=== PATIENT | female | born 1955 | race Caucasian/White ===

== ENCOUNTER 2021-12-24 08:48 | Outpatient (CLI) | payer BC, OTHER | END 2021-12-24 08:49 | disposition home or self-care (01) | LOC: BICMAMMO 08:48 | PROVIDERS: ATTEND Internal Medicine Rheumatology | DX: M81.0 Age-related osteoporosis without current pathological fracture (principal); M85.851 Other specified disorders of bone density and structure, right thigh | CPT/HCPCS: 77080 ==

== ENCOUNTER 2022-01-21 08:59 | Outpatient (CLI) | payer BC, OTHER | END 2022-01-21 09:00 | disposition home or self-care (01) | LOC: BICRAD 08:59 | PROVIDERS: ATTEND Internal Medicine Rheumatology | DX: M81.0 Age-related osteoporosis without current pathological fracture (principal); M41.9 Scoliosis, unspecified | CPT/HCPCS: 72072 ==

== ENCOUNTER 2023-01-25 08:39 | Outpatient (CLI) | payer BC, OTHER | END 2023-01-25 08:40 | disposition home or self-care (01) | LOC: BICMAMMO 08:39 | PROVIDERS: ATTEND Internal Medicine Rheumatology | DX: M81.0 Age-related osteoporosis without current pathological fracture (principal) | CPT/HCPCS: 77080 ==

== ENCOUNTER 2023-01-27 08:35 | Outpatient (CLI) | payer BC, OTHER | END 2023-01-27 08:36 | disposition home or self-care (01) | LOC: BICCT 08:35 | DX: I65.23 Occlusion and stenosis of bilateral carotid arteries (principal) | CPT/HCPCS: 70498; 82565 ==

== ENCOUNTER 2023-03-04 09:32 | Inpatient (IN) | payer BC, OTHER ==
[2023-03-04] MEDS ORDERED: Bupivacaine HCl 0.5%/Epinephrine 1:200,000/PF 30 ml Vial ONE (10:10)
[2023-03-04] MEDS ORDERED: Heparin 5,000 UNITS/ML VIAL ONE (10:10)
[2023-03-04] MEDS ORDERED: Protamine Sulfate 50 MG/5 ML VIAL ONE (10:10)
[2023-03-04] MEDS ORDERED: Lidocaine 1% PF 5 ML VIAL ONE ×2 (10:56→11:31)
[2023-03-04] MEDS ORDERED: Fentanyl 250 MCG/5 ML VIAL ONE (11:07)
[2023-03-04 11:13] LABS: #Eosinphils 0.1 thou/uL (0.0-0.7); #Lymphocytes 1.8 thou/uL (1.20-3.40); #Monocytes 0.5 thou/uL (0.11-0.59); #Neutrophils 3.1 thou/uL (1.40-6.50); %Basophils 0.6 % (0.0-1.0); %Eosinophils 2.3 % (0.0-10.0); %Lymphocytes 32.7 % (21.0-51.0); %Monocytes 8.8 % (0.0-10.0); %Neutrophils 55.6 % (42.0-75.0); Hemoglobin 12.3 g/dL (12.0-16.0); Mean Corpuscular HGB CONC 33.6 g/dL (32.0-36.0); Mean Corpuscular Hemoglobin 31.6 pg (27.0-31.0); Mean Corpuscular Volume 94.1 fl (78.0-98.0); Platelet Count 198 10x3/uL (130-400); RBC Distribution Width 11.8 % (11.5-14.5); White Blood Cell (WBC) Count 5.6 10x3/uL (4.8-10.8)
[2023-03-04] MEDS ORDERED: Sodium Chloride 0.9% 100 ML ONE (11:15)
[2023-03-04] MEDS ORDERED: CEFAZOLIN 2 GM VIAL ONE (11:15)
[2023-03-04] MEDS ORDERED: NEOSTIGMINE 3 MG/3 ML SYR 3 MG/3 ML SYRINGE ONE (11:31)
[2023-03-04] MEDS ORDERED: PROPOFOL 200 MG/20 ML VIAL ONE (11:31)
[2023-03-04] MEDS ORDERED: Ondansetron PF 4 MG/2 ML Vial ONE (11:31)
[2023-03-04] MEDS ORDERED: GLYCOPYRROLATE/PF 0.2 MG/ML VIAL ONE (11:31)
[2023-03-04] MEDS ORDERED: Dexamethasone 20 MG/5 ML VIAL ONE (11:31)
[2023-03-04] MEDS ORDERED: Rocuronium Bromide 10 MG/ML (10ML VIAL) ONE (11:31)
[2023-03-04] MEDS ORDERED: Phenylephrine 10 MG/ML VIAL ONE (11:31)
[2023-03-04 11:44] LABS: Anion Gap 14 mmol/L (10-20); BUN (Urea Nitrogen) 28 mg/dL (9.8-20.1); Calc. Creatinine Clearance 94 mL/min (70-130); Calcium 9.4 mg/dL (7.8-10.44); Carbon Dioxide 22 mmol/L (23-31); Chloride 109 mmol/L (98-107); Estimated GFR 83; Glucose 90 mg/dL (80-115); Potassium 4.4 mmol/L (3.5-5.1); Sodium 141 mmol/L (136-145)
[2023-03-04] MEDS ORDERED: Ondansetron PF 4 MG/2 ML Vial IVP PRN (13:01)
[2023-03-04] MEDS ORDERED: traMADol HCl 50 MG TAB PO PRN (13:01)
[2023-03-04] MEDS ORDERED: Ipratropium/Albuterol 3 ML NEB NEB PRN (13:01)
[2023-03-04] MEDS ORDERED: niCARdipine 25 MG in Sodium Chloride 0.9% 250 ML 250 ML IVPB PRN (13:01)
[2023-03-04] MEDS ORDERED: fentaNYL 50 mcg/mL 1 mL Vial SLOW IVP PRN ×2 (13:05→13:06)
[2023-03-04] MEDS ORDERED: Phenylephrine 40 MG/NS 250 ML 40 MG in Premix Bag 1 BAG IVPB PRN (13:08)
[2023-03-04] MEDS: Sodium Chloride 0.9% 1,000 ML IV SCH ×2 (15:00→20:16)
[2023-03-04 16:04] VITALS: BMI 31.1
[2023-03-04] MEDS: CEFAZOLIN 2 GM in Sodium Chloride 0.9% 100 ML IVPB SCH (19:23)
[2023-03-04] MEDS: Acetaminophen 325 MG TAB PO PRN (20:15)
[2023-03-04 20:17] VITALS: BP 135/96
[2023-03-04] MEDS ORDERED: Raloxifene 60 MG TAB PO SCH (21:00)
[2023-03-04] MEDS ORDERED: Atorvastatin Calcium 10 MG TAB PO SCH (21:00)
[2023-03-04] MEDS ORDERED: Lisinopril 10 MG TAB PO SCH (21:00)
[2023-03-05] MEDS: CEFAZOLIN 2 GM in Sodium Chloride 0.9% 100 ML IVPB SCH (03:46)
[2023-03-05 04:20] VITALS: TEMP 97.8
[2023-03-05] MEDS: Acetaminophen 325 MG TAB PO PRN (05:15)
[2023-03-05] MEDS ORDERED: Aspirin Chewable 81 MG TAB PO SCH (09:00)
== END 2023-03-05 08:30 | disposition home or self-care (01) | DRG 39 ==
LOC: SURG A 10:03 → CCU 14:27 → EDSTATUS 15:55
PROVIDERS: ADMIT Thoracic Surgery (Cardiothoracic Vascular Surgery); ATTEND Thoracic Surgery (Cardiothoracic Vascular Surgery)
PROC: 03CJ0ZZ Extirpation of Matter from Left Common Carotid Artery, Open Approach (ICD-10-PCS; principal; 2023-03-04)
PROC: 03UJ0KZ Supplement Left Common Carotid Artery with Nonautologous Tissue Substitute, Open Approach (ICD-10-PCS; 2023-03-04)
DX: I65.22 Occlusion and stenosis of left carotid artery (principal); I10 Essential (primary) hypertension; E78.5 Hyperlipidemia, unspecified; Z88.2 Allergy status to sulfonamides; Z79.82 Long term (current) use of aspirin; Z79.899 Other long term (current) drug therapy
CPT/HCPCS: 80048; 85025; 93005; 93010; C1768; C1776; J1100; J1644; J2370; J2405; J2704; J2720; J3010; J3490; J7050

== ENCOUNTER 2023-12-13 13:37 | Outpatient (CLI) | payer MEDICARE, OTHER | END 2023-12-13 13:38 | disposition home or self-care (01) | LOC: BICMAMMO 13:37 | PROVIDERS: ATTEND Internal Medicine | DX: Z12.31 Encounter for screening mammogram for malignant neoplasm of breast (principal); Z80.3 Family history of malignant neoplasm of breast | CPT/HCPCS: 77063; 77067 ==

== ENCOUNTER 2024-10-22 15:02 | Outpatient (CLI) | payer MEDICARE, OTHER | END 2024-10-22 15:03 | disposition home or self-care (01) | LOC: BICMAMMO 15:02 | PROVIDERS: ATTEND Internal Medicine Rheumatology | DX: M81.0 Age-related osteoporosis without current pathological fracture (principal); M85.89 Other specified disorders of bone density and structure, multiple sites | CPT/HCPCS: 77080 ==